=== PATIENT | female | born 1990 | race Caucasian/White ===

== ENCOUNTER 2017-04-11 09:05 | Day surgery (SDC) | payer BC ==
[~2017-04-11] VITALS: Ht 172.7 cm; Wt 60.8 kg
--- NOTE | 2017-04-11 13:11 | NUR ---
[facility] [facility]
--- NOTE | 2017-04-11 13:41 | NUR ---
COOL WASH CLOTH GIVEN PER PATIENT'S REQUEST. ICED WATER GIVEN. CALL LIGHT W/IN REACH. BLAZE ORDERED FROM DIETARY.
[2017-04-11] MEDS ORDERED: NORCO 5-325 TA1 EACH PO (14:55)
[2017-04-11] MEDS ORDERED: IBUPROFEN800 MG PO (14:55)
--- NOTE | 2017-04-11 15:38 | NUR ---
1440: PATIENT GIVEN CRACKERS TO EAT. TOLERATING WATER. 1500: PATIENT ASSISTED OOB AND TO BATHROOM. GAIT STEADY. VOID WITHOUT DIFFICULTY. GAIT STEADY BACK TO ROOM. PATIENT GETTING DRESSED. 1517: IV DC'D WNL. DRESSING APPLIED. DISCHARGE INSTRUCTIONS GIVEN TO PATIENT AND . PATIENT DISCHARGED TO HOME WITH VIA WHEELCHAIR.
--- NOTE | 2017-04-14 12:39 | OR ---
[facility] [address], [place] [address] Signed DATE OF SERVICE: 04/11/2017 PREOPERATIVE DIAGNOSES: Incomplete and abnormal endometrium. POSTOPERATIVE DIAGNOSES: Incomplete and abnormal endometrium with endometrial mass. PROCEDURE PERFORMED: Hysteroscopy with biopsy. SURGEON: Dr. Osorio. ANESTHESIA: General. ESTIMATED BLOOD LOSS: 10 mL. COMPLICATIONS: None. SPECIMEN: Uterine contents. DRAINS: None. FINDINGS: Vagina, no blood. Cervix, thick and closed. No active bleeding. Uterine cavity sounded to 10 cm, which was normal in shape. The endometrial cavity did have a small amount of irregular brown-black spotted tissue in the posterior fundal portion and a small 1 x 2 cm polyp in the posterior mid cavity that was again slightly irregular. No other masses or lesions seen. No evidence of gestation seen. Both ostia were seen and appeared normal. DESCRIPTION OF PROCEDURE: The patient was brought into the operating room, placed in the supine position. After adequate general anesthesia was obtained, was placed in a dorsal lithotomy position. Prepped and draped in usual sterile fashion. A weighted speculum was placed in the vagina and the anterior lip of cervix grasped with an Allis clamp. Uterine cavity was sounded to 10 cm and the cervix dilated up to a #7-Albanian dilator. The hysteroscope was then carefully introduced into the cervical canal and into the uterine cavity under direct visualization. Sterile saline was used as distending medium. The above findings were noted. A MyoSure LITE was then placed through the hysteroscope and the polypoid tissue was removed by carefully placing the edge of the MyoSure forceps against posterior aspect and using a foot pedal to cut and suction tissue out. In the same Electronically Signed By: LOREN OSORIO MD 04/14/17 1239 PATIENT NAME: DAPHNE DE LUNA OPERATIVE REPORT DATE OF : 88 PHYSICIAN: LOREN OSORIO MD REPORT #: [id number] REPORT IS CONFIDENTIAL AND NOT TO BE RELEASED WITHOUT AUTHORIZATION [facility] [address], [place] [address] Signed fashion, the posterior endometrium was removed, removing the irregular brown-black spotted material that did not appear normal. After the superficial layer of this was removed, normal tissue was noted. Small amount of tissue was removed in the rest of the uterine cavity. At this point, good hemostasis was noted. No other masses or lesions seen. The hysteroscope was then slowly removed in the uterus and cervical canal carefully examined on the way out and appeared normal at this time. The endometrial pressure was noted to be 80 mmHg and the fluid loss noted to be 350 mL. All instruments were removed from the vagina and cervix. Cervix observed and noted to have good hemostasis. The patient tolerated the procedure well and went to recovery room in good condition. The uterine specimen was sent to Pathology for identification. MD MICHAEL Duckworth/[place]ial /[id number] Electronically Signed By: LOREN OSORIO MD 04/14/17 1239 PATIENT NAME: DAPHNE DE LUNA MIHAELA OPERATIVE REPORT DATE OF : 88 PHYSICIAN: LOREN OSORIO MD REPORT #: [id number] REPORT IS CONFIDENTIAL AND NOT TO BE RELEASED WITHOUT AUTHORIZATION
== END 2017-04-11 15:17 | disposition home or self-care (01) ==
LOC: DS 09:05
PROVIDERS: General Practice
PROC: 0UDB8ZX Extraction of Endometrium, Via Natural or Artificial Opening Endoscopic, Diagnostic (ICD-10-PCS; principal; 2017-04-11 12:00)
DX: O03.4 Incomplete spontaneous abortion without complication (principal); Z82.49 Family history of ischemic heart disease and other diseases of the circulatory system; Z80.3 Family history of malignant neoplasm of breast; Z88.0 Allergy status to penicillin; Z79.899 Other long term (current) drug therapy
CPT/HCPCS: 00952; J1885; J2405; J2704; J2765; J3010; J7120